=== PATIENT | male | born 1945 | race Caucasian/White ===

== ENCOUNTER 2016-10-14 11:21 | Emergency (ER) | payer OTHER, MEDICARE ==
[~2016-10-14] VITALS: Ht 180.3 cm; Wt 74.8 kg
[2016-10-14] MEDS ORDERED: MORPHINE SULFATE 10 MG/ML VIAL. ONE (11:38)
[2016-10-14] MEDS ORDERED: MORPHINE SULFATE 10 MG/ML VIAL. IV ONE (11:45)
[2016-10-14] MEDS ORDERED: ETOMIDATE 20 MG/10 ML VIAL. IV ONE (12:00)
[2016-10-14] MEDS ORDERED: FENTANYL PF 100 MCG/2 ML VIAL. IV ONE ×3 (12:00→13:07)
--- NOTE | 2016-10-14 12:01 | RAD ---
Indication left hip pain. AP and lateral views of the left hip were obtained as well as an AP view of the pelvis. There is a dislocated total left hip prosthesis. No fracture is seen. IMPRESSION: Dislocated total left hip prosthesis
[2016-10-14] MEDS ORDERED: IV NORMAL SALINE 1000ML BAG 1,000 ML IV ONE (12:30)
[2016-10-14] MEDS ORDERED: MIDAZOLAM HCL/PF 5 MG/5 ML VIAL. ONE (12:35)
[2016-10-14] MEDS ORDERED: PROPOFOL 20 ML IV ONE ×2 (12:41→13:00)
[2016-10-14] MEDS ORDERED: MIDAZOLAM HCL/PF 5 MG/5 ML VIAL. IV ONE (13:00)
--- NOTE | 2016-10-14 13:22 | RAD ---
Indication post reduction. AP and lateral views of the left hip were obtained at 1314 and compared to an examination approximately 90 minutes earlier. There's been interval reduction of previously identified dislocated total hip prosthesis.. No complication is seen. No fracture is identified. IMPRESSION: Interval reduction
--- NOTE | 2016-10-14 13:43 | PHYS DOC ---
Past Medical History Past Medical History: Arthritis, Cancer, Diabetes-Type II, Heart Disease, Hypertension, Other Additional Past Medical Histor: RENAL CA Past Surgical History: Hip Replacement, Pacemaker, Other Additional Past Surgical Histo: L JHIP, L FAILED ROTATOR CUFF, L NEPHRECTOMY Alcohol Use: None Drug Use: None Adult General Chief Complaint Chief Complaint: HIP PAIN HPI HPI Patient is a 71 year old male who presents with left hip deformity. Patient states he was sitting on the floor at home, tried to stand up & felt hip pop out of place. Has been unable to stand or bear weight since time of the incident. Denies injuries. No other complaints. Patient has remote history of left hip arthroplasty at the [facility] performed by a surgeon no longer practicing. Previous dislocation in 12/2015, reduced in the ED by Dr. Diaz. Review of Systems Review of Systems Constitutional: Denies fever or chills Eyes: Denies change in visual acuity HENT: Denies nasal congestion or sore throat Respiratory: Denies cough or shortness of breath Cardiovascular: Denies chest pain or edema GI: Denies abdominal pain, nausea, vomiting, Musculoskeletal: Reports left hip pain Integument: Denies rash or skin lesions Neurologic: Denies headache Current Medications Current Medications Current Medications Medications (Trade) Dose Ordered Sig/Todd Start Time Stop Time Status Last Admin Dose Admin Etomidate (Amidate) 10 mg 1X ONCE 10/14/16 12:00 10/14/16 12:01 DC 10/14/16 12:29 10 MG Fentanyl Citrate (Fentanyl 2ml Vial) 50 mcg 1X ONCE 10/14/16 13:07 10/14/16 13:08 DC Fentanyl Citrate 50 mcg 50 mcg 1X ONCE 10/14/16 12:00 10/14/16 12:01 DC 10/14/16 12:31 50 MCG Midazolam HCl (Versed) 3 mg 1X ONCE 10/14/16 13:00 10/14/16 13:01 DC 10/14/16 12:34 3 MG Midazolam HCl 5 mg 5 mg STK-MED ONCE 10/14/16 12:35 10/14/16 12:36 DC Morphine Sulfate 10 mg STK-MED ONCE 10/14/16 11:38 10/14/16 11:39 DC Propofol (Diprivan) 20 ml @ 0 mls/hr 1X ONCE 10/14/16 13:00 10/14/16 13:01 DC 10/14/16 12:43 0 MLS/HR Sodium Chloride (Iv Sodium Chloride 0.9% 1000ml Bag) 1,000 ml @ 1,000 mls/hr 1X ONCE 10/14/16 12:30 10/14/16 13:29 DC 10/14/16 12:26 1,000 MLS/HR Allergies Allergies Allergies Coded Allergies Type Severity Reaction Last Updated Verified Penicillins Allergy Intermediate 12/19/15 Yes Physical Exam Physical Exam Constitutional: Well developed, well nourished, appears uncomfortable. HENT: Normocephalic, atraumatic, bilateral external ears normal, oropharynx moist, nose normal. Eyes: conjunctiva normal, no discharge. Neck: supple, no stridor. Cardiovascular: RRR, no murmurs, no edema. Lungs & Thorax: LCTAB, no wheezing, no respiratory distress. Abdomen: soft, nontender, nondistended. Skin: Warm, dry, no erythema, no rash. Back: No tenderness. Extremities: Left hip internally rotated with obvious deformity, no knee or ankle tenderness, DP and PT 2+, sensation intact to foot. Neurologic: Alert and oriented X 3, no focal deficits noted. Psychologic: Affect normal, judgement normal, mood normal. Current Patient Data Vital Signs Vital Signs Date Time Temp Pulse Resp B/P Pulse Ox O2 Delivery O2 Flow Rate FiO2 10/14/16 12:36 20 98 Room Air 10/14/16 11:25 98.3 97 237/102 98.3 EKG EKG [] Radiology/Procedures Radiology/Procedures PROCEDURE: HIP LEFT 2V WITH PELVIS Indication left hip pain. AP and lateral views of the left hip were obtained as well as an AP view of the pelvis. There is a dislocated total left hip prosthesis. No fracture is seen. IMPRESSION: Dislocated total left hip prosthesis DICTATED and SIGNED BY: SP BLANCAS MD DATE: 10/14/16 7257 PROCEDURE: HIP LEFT 2 VIEW Indication post reduction. AP and lateral views of the left hip were obtained at 1314 and compared to an examination approximately 90 minutes earlier. There's been interval reduction of previously identified dislocated total hip prosthesis.. No complication is seen. No fracture is identified. IMPRESSION: Interval reduction DICTATED and SIGNED BY: SP BLANCAS MD DATE: 10/14/16 8867 [] Course & Med Decision Making Course & Med Decision Making Pertinent Labs and Imaging studies reviewed. (See chart for details) [] Dragon Disclaimer Dragon Disclaimer This electronic medical record was generated, in whole or in part, using a voice recognition dictation system. Procedural Sedation Proc Sed Indication: reduction of left hip dislocation Consent: I have discussed with the patient and/or the patient sales representative business courses the indication, alternatives, and the possible risks and /or complications of the planned procedure and the anesthesia methods. The patient and/or patient sales representative business courses appear to understand and agree to proceed. Pre-Sedation Documentation and Exam: as documented above Airway Assessment: normal. Prior History of Anesthesia Complications: none. ASA Classification: 3 Sedation/ Anesthesia Plan: procedural sedation in the emergency department Medications Used: see nursing notes. inadequate sedation with etomidate as well as fentanyl/versed, ultimately achieved sedation with propofol. see skiff operator for doses & times. Monitoring and Safety: The patient was placed on a adjunct professor and vital signs, pulse oximetry and level of consciousness were continuously evaluated throughout the procedure. The patient was closely monitored until recovery from the medications was complete and the patient had returned to baseline status. Respiratory therapy was on standby at all times during the procedure. (The following sections must be completed) Post-Sedation Vital Signs: as documented by RN Post-Sedation Exam: as above with the exception of successfully reduced dislocation of left hip, dp/pt remain 2+, sensation intact to foot, normal ROM to hip. Complications: none. Vital Signs Vital Signs Date Time Temp Pulse Resp B/P Pulse Ox O2 Delivery O2 Flow Rate FiO2 10/14/16 12:36 20 98 Room Air 10/14/16 11:25 98.3 97 237/102 98.3 Joint Reduction Procedure Joint Indication: left hip dislocation Consent: Consent was obtained. Procedure: The pre-reduction exam showed distal perfusion and neurologic function to be normal.. The patient was placed in the appropriate position. Anesthesia/pain control was achieved as above using procedural sedation. Reduction of the left hip was performed by traction/countertraction, initially attempted by Dr. Torres & ultimately performed by Dr. Waite. Post reduction films were obtained and revealed satisfactory reduction. A post-reduction exam revealed distal perfusion and neurologic function to be normal. The patient tolerated the procedure well. Complications: none. Departure Departure Impression: Primary Impression: Dislocation of hip joint prosthesis Disposition: 01 HOME, SELF-CARE Condition: IMPROVED Referrals: CARLOS DIAZ MD Patient Instructions: Closed Reduction for Artificial Hip Dislocation, Care After Additional Instructions: You were seen in the emergency department today for hip dislocation. It was successfully reduced while you were sedated. Please avoid sitting on the floor as this has caused multiple dislocations. We recommend using the pillow that you received last time this happened. Follow-up in about a week with Dr. Diaz in the orthopedic clinic. Return to the emergency department for recurrent dislocation, numbness or weakness in your leg, cold foot, any otherwise worsening condition. YOCASTA TORRES MD Oct 14, 2016 13:42
[2016-10-14 14:00] VITALS: BP 165/95
== END 2016-10-14 14:10 | disposition home or self-care (01) ==
LOC: ER 11:21
DX: T84.021A Dislocation of internal left hip prosthesis, initial encounter (principal); I10 Essential (primary) hypertension; E11.9 Type 2 diabetes mellitus without complications; I11.9 Hypertensive heart disease without heart failure; M19.90 Unspecified osteoarthritis, unspecified site; Z88.0 Allergy status to penicillin; Z95.0 Presence of cardiac pacemaker; Z90.5 Acquired absence of kidney; Z96.642 Presence of left artificial hip joint; Y79.2 Prosthetic and other implants, materials and accessory orthopedic devices associated with adverse incidents; Y92.89 Other specified places as the place of occurrence of the external cause
CPT/HCPCS: 27265; 73502; 96361; 96374; 96375; 99285; J2250; J2270; J2704; J3010; J7030

== ENCOUNTER 2017-05-01 15:15 | Emergency (ER) | payer MEDICARE, OTHER ==
[~2017-05-01] VITALS: Ht 180.3 cm; Wt 73.7 kg
[2017-05-01] MEDS ORDERED: HYDROmorphone 2 MG/ML VIAL IV ONE (15:45)
[2017-05-01] MEDS ORDERED: ONDANSETRON PF 4 MG/2 ML VIAL. IV ONE (15:45)
[2017-05-01] MEDS ORDERED: fentaNYL PF VIAL 100 MCG/2 ML VIAL IV ONE (15:45)
[2017-05-01] MEDS ORDERED: PROPOFOL 20 ML IV ONE (15:45)
--- NOTE | 2017-05-01 15:58 | PHYS DOC ---
Past Medical History Past Medical History: Arthritis, Cancer, Diabetes-Type II, High Cholesterol, Heart Disease, Hypertension, Other Additional Past Medical Histor: RENAL CA/ SKIN CA. RA Past Surgical History: Coronary Bypass Surgery, Hip Replacement, Pacemaker, Other Additional Past Surgical Histo: L HIP, L FAILED ROTATOR CUFF, L NEPHRECTOMY, Alcohol Use: None Drug Use: None Adult General Chief Complaint Chief Complaint: HIP PAIN HPI HPI he is a pleasant 71-year-old male with a history of left hip prosthesis now having his third dislocation in his many months. Patient was standing trying to turn and it popped coming out of joint causing his late internally rotate. He was unable to stand and EMS was called to the scene, transported to the ER. He has a relationship with Dr. Diaz exerted here to advise this particular prosthetic. His prosthetic is been here since 2007. His pain is severe 10 of 10 especially with movement. He denies any numbness and tingling to the lower extremity. Denies any bowel or bladder incontinence, numbness and tingling, abdominal pain, nausea vomiting or diarrhea. Patient denied any concomitant injury with the dislocation at the time it occurred. Does have history of hypertension, hyperlipidemia, prior stenting and bypass surgery for a heart attack. Patient has a history of prior renal cell carcinoma requiring nephrectomy, diabetes type 2 and chronic pain issues. His last meal was approximately 10:30 AM he denies any oral instability, neck immobility problems , problems swallowing or problems with anesthetics. Review of Systems Review of Systems Constitutional: Denies fever or chills [] Eyes: Denies change in visual acuity, redness, or eye pain [] HENT: Denies nasal congestion or sore throat [] Respiratory: Denies cough or shortness of breath [] Cardiovascular: No additional information not addressed in HPI [] GI: Denies abdominal pain, nausea, vomiting, bloody stools or diarrhea [] : Denies dysuria or hematuria [] Musculoskeletal: Patient complains of severe left hip pain Integument: Denies rash or skin lesions [] Neurologic: Denies headache, focal weakness or sensory changes [] Endocrine: Denies polyuria or polydipsia [] Current Medications Current Medications Current Medications Medications (Trade) Dose Ordered Sig/Todd Start Time Stop Time Status Last Admin Dose Admin Fentanyl Citrate (Fentanyl 2ml Vial) 50 mcg 1X ONCE 05/01/17 15:45 05/01/17 15:46 DC Hydromorphone HCl (Dilaudid) 2 mg 1X ONCE 05/01/17 15:45 05/01/17 15:46 DC 05/01/17 15:43 2 MG Ondansetron HCl (Zofran) 4 mg 1X ONCE 05/01/17 15:45 05/01/17 15:46 DC 05/01/17 15:42 4 MG Propofol 20 ml @ 0 mls/hr 1X ONCE 05/01/17 15:45 05/01/17 15:46 DC 05/01/17 16:11 0 MLS/HR Allergies Allergies Allergies Coded Allergies Type Severity Reaction Last Updated Verified Penicillins Allergy Intermediate 12/19/15 Yes Physical Exam Physical Exam Constitutional: Well developed, well nourished, patient is very uncomfortable with his hip in a position internal rotation on the left. HENT: Normocephalic, atraumatic, bilateral external ears normal, oropharynx moist, no oral exudates, nose normal. No loose dentition, or pharynx is clear Eyes: PERRLA, EOMI, conjunctiva normal, no discharge. [] Neck: Normal range of motion, no tenderness, supple, no stridor. [] Cardiovascular:Heart rate regular rhythm, no murmur [] Lungs & Thorax: Bilateral breath sounds clear to auscultation [] Abdomen: Bowel sounds normal, soft, no tenderness, Skin: Warm, dry, no erythema, no rash. [] Extremities: Left hip shows internal rotation with shortening. Normal sensation to light touch and good pulses at the dorsalis pedis brisk +2 Neurologic: Alert and oriented X 3, normal motor function, normal sensory function, no focal deficits noted. [] Psychologic: Affect normal, judgement normal, mood normal. [] Current Patient Data Vital Signs Vital Signs Date Time Temp Pulse Resp B/P (MAP) Pulse Ox O2 Delivery O2 Flow Rate FiO2 05/01/17 16:11 98.0 107 20 183/81 98.0 98.0 98.0 05/01/17 15:43 Room Air 05/01/17 15:15 100 EKG EKG [] Radiology/Procedures Radiology/Procedures [] [facility] [address] [place] [address] IMAGING REPORT Signed PATIENT: CHRISTINE WHITE ACCOUNT: [id number] : 1945 LOCATION: ER AGE: 71 SEX: M EXAM STATUS: PRE ER ORD. PHYSICIAN: RICHARD BLACKMAN MD REASON: trauma PROCEDURE: HIP LEFT 2 VIEW Indication: Pain after fall. Technique: 2 views of the left hip are submitted for review. Comparison is from October 14, 2016. Findings: Left hip arthroplasty has been performed. Hardware appears well seated. There is no perihardware lucency. There is dislocation of the femur from the acetabular component. Dislocation is superior and posterior. No fracture is apparent. Impression: Dislocated left hip prosthesis. DICTATED and SIGNED BY: KALI MOSQUERA MD DATE: 05/01/17 161 CC: RICHARD BLACKMAN MD; MALORIE JHA MD ~ [address] [address] IMAGING REPORT Signed PATIENT: CHRISTINE WHITE ACCOUNT: [id number] : 1945 LOCATION: ER AGE: 71 SEX: M EXAM STATUS: PRE ER ORD. PHYSICIAN: RICHARD BLACKMAN MD REASON: reduction PROCEDURE: HIP LEFT 2 VIEW Indication post reduction. AP and lateral views of the left hip were obtained and are compared to a study approximately 30 minutes earlier. There has been interval reduction of previously identified hip dislocation. No fracture or unexpected finding is seen. IMPRESSION: Interval reduction of previously identified dislocation DICTATED and SIGNED BY: SP BLANCAS MD DATE: 05/01/17 163 CC: RICHARD BLACKMAN MD; MALORIE JHA MD ~ Course & Med Decision Making Course & Med Decision Making Pertinent Labs and Imaging studies reviewed. (See chart for details) Patient is a pleasant 71-year-old male with a history of prosthetic left hip that is been dislocated more than one time. Patient was a standing position when he twisted and felt that it popped out of joint. Decreased extreme pain with no neurologic deficits. Patient was able to walk after the injury. He arrived here his stated discomfort with obvious hip dislocation. It is been reduced after internal procedure sedation. The patient is neurovascular intact on secondary evaluation. Time is now 4:40 PM patient is asked to be discharged home. He is tolerating the pain well he's been given precautions and asked to follow-up with his orthopedic surgeon for revision of the prosthetic hip.\ Impression hip dislocation reduction: Hypertension likely secondary to pain chronic hypertension Dragon Disclaimer Dragon Disclaimer This electronic medical record was generated, in whole or in part, using a voice recognition dictation system. Departure Departure Impression: Primary Impression: Dislocation of hip joint prosthesis Disposition: HOME, SELF-CARE Condition: IMPROVED Referrals: MALORIE JHA MD (PCP) Patient Instructions: Closed Reduction for Artificial Hip Dislocation Additional Instructions: My discharge plan Follow up: In addition patient is asked to followup with their primary doctor, within a week for followup examination and to address patient's ongoing medical conditions. Patient is advised that in the Emergency Department primary complaints are addressed and only in light of known signs and symptoms. Patient should return immediately to the emergency department if new signs and symptoms develop or patient's condition worsens in any way. At time of discharge patient was in stable condition and had verbalized understanding of the discharge instructions. Although there is no acute fracture noted on x-ray today this does not mean subtle fractures are not missed on initial presentation. If your symptoms are not improved within 1 week or if symptoms worsen despite oral treatment with pain medications I would advise follow-up with your primary care doctor to have a repeat set of x-rays completed to ensure no subtle fractures were missed. Please understand that sometimes x-rays are missed red and if there is a misreading of your x-rays she will be contacted by the emergency room physician to talk about appropriate treatment. Scripts Oxycodone/Apap 5-325 (PERCOCET 5-325 MG TABLET) 1 Each Tablet 1-2 TAB PO Q4-6HRS, #12 TAB Prov: RICHARD BLACKMAN MD 05/01/17 Procedural Sedation Proc Sed Indication: []Left hip location reduction for prosthetic hip. He's been out 3 hours Consent: I have discussed with the patient and/or the patient truck sales representative the indication, alternatives, and the possible risks and /or complications of the planned procedure and the anesthesia methods. The patient and/or patient truck sales representative appear to understand and agree to proceed. Pre-Sedation Documentation and Exam: See exam patient has a MP score of 3 [] Airway Assessment: normal. Prior History of Anesthesia Complications: none. ASA Classification: 2 [] Sedation/ Anesthesia Plan: I plan to use IV fentanyl 50 g prior to the reduction. I will use 1 mg/kg of IV propofol over 3-5 minutes followed by boluses Q further 5 minutes to keep him sedation[] Medications Used: see nursing notes. Monitoring and Safety: The patient was placed on a groundwater monitoring technician and vital signs, pulse oximetry and level of consciousness were continuously evaluated throughout the procedure. The patient was closely monitored until recovery from the medications was complete and the patient had returned to baseline status. Respiratory therapy was on standby at all times during the procedure. (The following sections must be completed) Post-Sedation Vital Signs: [EDM.VS] as his blood pressure is 135/75 her in the mid 70s. Patient's sats are 98% on room air patient's respiratory rates 12-14 Post-Sedation Exam: Patient post-sedation exam hip was reduced with a palpable clunk. We used traction countertraction to reduce the hip without issue. His hip is no longer internally rotated on follow-up exam. Patient took his airway the entire time satting 97-98% on room air. Blood pressure was 183/89 as his heart rate was in the mid 80s. [] Complications: none. Vital Signs Vital Signs Date Time Temp Pulse Resp B/P (MAP) Pulse Ox O2 Delivery O2 Flow Rate FiO2 05/01/17 16:11 98.0 107 20 183/81 98.0 98.0 98.0 05/01/17 15:43 Room Air 05/01/17 15:15 100 RICHARD BLACKMAN MD May 01, 2017 15:58
--- NOTE | 2017-05-01 16:14 | RAD ---
Indication: Pain after fall. Technique: 2 views of the left hip are submitted for review. Comparison is from October 14, 2016. Findings: Left hip arthroplasty has been performed. Hardware appears well seated. There is no perihardware lucency. There is dislocation of the femur from the acetabular component. Dislocation is superior and posterior. No fracture is apparent. Impression: Dislocated left hip prosthesis.
[2017-05-01] MEDS ORDERED: OXYC-323 PO (16:19)
--- NOTE | 2017-05-01 16:35 | RAD ---
Indication post reduction. AP and lateral views of the left hip were obtained and are compared to a study approximately 30 minutes earlier. There has been interval reduction of previously identified hip dislocation. No fracture or unexpected finding is seen. IMPRESSION: Interval reduction of previously identified dislocation
[2017-05-01 16:45] VITALS: BP 156/77
== END 2017-05-01 16:55 | disposition home or self-care (01) ==
LOC: ER 15:15
DX: T84.021A Dislocation of internal left hip prosthesis, initial encounter (principal); E11.9 Type 2 diabetes mellitus without complications; E78.00 Pure hypercholesterolemia, unspecified; I11.9 Hypertensive heart disease without heart failure; Z95.0 Presence of cardiac pacemaker; Z90.5 Acquired absence of kidney; Z85.528 Personal history of other malignant neoplasm of kidney; I25.2 Old myocardial infarction; G89.29 Other chronic pain; Z88.0 Allergy status to penicillin; Z95.1 Presence of aortocoronary bypass graft; Y79.2 Prosthetic and other implants, materials and accessory orthopedic devices associated with adverse incidents; Y92.89 Other specified places as the place of occurrence of the external cause
CPT/HCPCS: 27265; 73502; 96374; 96375; 99285; J1170; J2405; J2704

== ENCOUNTER → 2017-05-19 | Outpatient (CLI) | payer OTHER ==
[2017-05-01 16:45] VITALS: BP 156/77
[~2017-05-19] MED LIST: ADAL40PE SQ; AMLO5TAB2 PO; CETI10TA16 PO; CLOP75TA PO; CRESTOR40 MG PO; FOLI1TAB16 PO; FOSI40TA PO; GLIP10TA13 PO; METH2.5T PO; METO200T5 PO; OXYC-323 PO; PRED2.5T PO; TAMS0.4C2 PO
--- NOTE | 2017-05-19 14:23 | EKG ---
[facility] [address] [place] [address] Test Date: 2017-05-19 Test Time: 14:28:33 Pat Name: CHRISTINE WHITE Department: Room: Gender: M Digital Sales Representative: NIK : 1945 Requested By: CARLOS FAN Order Number: [id number] Reading MD: Jimbo Lerner MD Measurements Intervals [place] Rate: 66 P: 46 IN: 150 QRS: 63 QRSD: 112 T: -157 QT: 438 QTc: 461 Interpretive Statements SINUS RHYTHM VENTRICULAR PREMATURE COMPLEX(ES) ST & T ABNORMALITY, CONSIDER ANTEROLATERAL ISCHEMIA OR LEFT VENTRICULAR STRAIN INFEROLATERAL ISCHEMIA OR LEFT VENTRICULAR STRAIN T ABNORMALITY IN ANTERIOR LEADS Electronically Signed On 05-20-2017 13:56:33 CDT by Jimbo Lerner MD
--- NOTE | 2017-05-19 15:15 | RAD ---
Indication: Preop for left hip surgery. Time of exam 1501 hours. No prior studies are available for comparison. The heart size is normal. There are changes of median sternotomy. There is a cardiac defibrillator in place. The lungs are hyperinflated consistent with COPD. There are calcified nodules in both lungs consistent with granulomas. No effusion or pneumothorax is seen. Impression: COPD. No acute feature is detected.
[2017-05-19 15:31] LABS: BASO % 1 % (0-3); EOS % 2 % (0-3); HEMATOCRIT 45.1 % (39.0-53.0); HEMOGLOBIN 15.5 g/dL (13.0-17.5); LYMPH # 2.3 x10^3/uL (1.0-4.8); LYMPH % 32 % (24-48); MEAN CORPUSCULAR HEMOGLOBIN 35 pg (25-35); MEAN CORPUSCULAR HGB CONC 34 g/dL (31-37); MEAN CORPUSCULAR VOLUME 102 fL (79-100); MONO % 10 % (0-9); NEUT % 56 % (31-73); PLATELET COUNT 170 x10^3/uL (140-400); RED BLOOD COUNT 4.43 x10^6/uL (4.30-5.70); RED CELL DISTRIBUTION WIDTH 14.5 % (11.5-14.5); WHITE BLOOD COUNT 7.2 x10^3/uL (4.0-11.0)
[2017-05-19 15:42] LABS: ALBUMIN 3.9 g/dL (3.4-5.0); CALCIUM 9.2 mg/dL (8.5-10.1); CREATININE 1.1 mg/dL (0.7-1.3); GFR 65.8; POTASSIUM 4.2 mmol/L (3.5-5.1)
[2017-05-19 15:48] LABS: PROTHROMBIN TIME PATIENT 12.6 SEC (11.7-14.0)
[2017-05-19 15:54] LABS: BILIRUBIN,URINE NEGATIVE (NEG); GLUCOSE,URINE NEGATIVE (NEG); NITRITE,URINE NEGATIVE (NEG); PROTEIN,URINE NEGATIVE (NEG-TRACE); UROBILINOGEN,URINE 0.2 mg/dL (0.2 mg/dL)
[2017-05-19 15:59] LABS: BACTERIA,URINE 0 /HPF (0-FEW); RBC,URINE 0 /HPF (0-2); WBC,URINE 0 /HPF (0-4)
== END | disposition home or self-care (01) ==
LOC: SURGPAT 13:03
PROVIDERS: ATTEND Orthopaedic Surgery
DX: Z01.818 Encounter for other preprocedural examination (principal); T84.02 Dislocation of internal joint prosthesis; J44.9 Chronic obstructive pulmonary disease, unspecified; Z96.642 Presence of left artificial hip joint; X58.XXXD Exposure to other specified factors, subsequent encounter
CPT/HCPCS: 36415; 71020; 80048; 81001; 82040; 83036; 85025; 85610; 85651; 85730; 87641; 93005

== ENCOUNTER 2017-06-13 06:04 | Inpatient (IN) | payer OTHER ==
[~2017-06-13] VITALS: Ht 177.8 cm; Wt 78.5 kg
[2017-06-13] VITALS (8 sets, daily range): BP systolic 131–152; BP diastolic 57–81
[~2017-06-13 06:04] MED LIST changes: +CELECOXIB 200 MG CAPSULE. PO PRN; +GABA-585 PO; +HYDROcodone/APAP 7.5/325MG 1 TAB TABLET PO PRN; +TRANEXAMIC ACID 1,000 MG in IV NS 50ML -- 1ST BAG INJ ONE
[2017-06-13 06:58] LABS: PROTHROMBIN TIME PATIENT 12.9 SEC (11.7-14.0)
[2017-06-13] MEDS ORDERED: IV RINGERS,LACTATED 1000ML 1,000 ML IV SCH (07:00)
[2017-06-13] MEDS ORDERED: HYDROmorphone 2 MG/ML VIAL IV PRN (07:00)
[2017-06-13] MEDS ORDERED: LIDOCAINE 1% PF 2 ML VIAL. ID PRN (07:00)
[2017-06-13] MEDS ORDERED: ONDANSETRON PF 4 MG/2 ML VIAL. IV PRN (07:00)
[2017-06-13] MEDS ORDERED: PROCHLORPERAZINE 10 MG/2 ML VIAL. IV PRN ×2 (07:00→11:00)
[2017-06-13] MEDS ORDERED: fentaNYL PF VIAL 100 MCG/2 ML VIAL IV PRN ×3 (07:00→11:00)
[2017-06-13] MEDS ORDERED: PROPOFOL 20 ML IV ONE (07:19)
[2017-06-13] MEDS ORDERED: ONDANSETRON PF 4 MG/2 ML VIAL. ONE (07:19)
[2017-06-13] MEDS ORDERED: ROCURONIUM 50 MG/5 ML VIAL. ONE (07:19)
[2017-06-13] MEDS ORDERED: DEXAMETHASONE SOD PHOS 20 MG/5 ML VIAL. ONE (07:19)
[2017-06-13] MEDS ORDERED: LIDOCAINE 2% PF Vial for OR 5 ML VIAL. ONE (07:19)
[2017-06-13] MEDS ORDERED: fentaNYL PF VIAL 100 MCG/2 ML VIAL ONE ×4 (07:20→11:58)
[2017-06-13] MEDS: MORPHINE SULFATE 5 MG, KETOROLAC 30 MG, ROPIVacaine 0.5% PF 60 ML, EPINEPHrine 0.5 MG i... INT ART ONE ×10 (07:30→08:36)
[2017-06-13] MEDS ORDERED: CLINDAMYCIN 900MG PREMIX 50 ML IV PRN (08:00)
[2017-06-13] MEDS ORDERED: TRANEXAMIC ACID 1,000 MG in IV NS 50ML -- 2ND BAG INJ ONE (08:00)
[2017-06-13] MEDS ORDERED: PHENYLEPHRINE in 0.9% NACL PF 1 MG/10 ML DISP.SYRIN. IV ONE (08:47)
[2017-06-13] MEDS ORDERED: SEVOFLURANE > 120 MINUTES. IH ONE (09:02)
[2017-06-13] MEDS ORDERED: PHENYLEPHRINE 10 MG/ML VIAL. ONE (09:03)
[2017-06-13] MEDS ORDERED: VASOPRESSIN 20 UNIT/ML VIAL. ONE (09:12)
[2017-06-13] MEDS ORDERED: 0.9 % SODIUM CHLORIDE 50 ML VIAL. IJ ONE (09:50)
[2017-06-13] MEDS: fentaNYL PF VIAL 100 MCG/2 ML VIAL IV PRN ×4 (10:40→12:18)
[2017-06-13] MEDS ORDERED: INSULIN ASPART 100 UNIT/ML 10ML VIAL. SQ ONE (10:57)
[2017-06-13] MEDS ORDERED: CALCIUM CARBONATE 500 MG TAB.CHEW PO PRN (11:00)
[2017-06-13] MEDS ORDERED: MORPHINE SULFATE 2 MG/ML DISP.SYRIN. IV PRN (11:00)
[2017-06-13] MEDS ORDERED: 0.9 % SODIUM CHLORIDE 10 ML DISP.SYRIN. IV PRN (11:00)
[2017-06-13] MEDS ORDERED: METOCLOPRAMIDE HCL 10 MG/2 ML VIAL. IV PRN (11:00)
[2017-06-13] MEDS ORDERED: DEXTROSE 50% 25 GM / 50ML DISP.SYRIN. IV PRN (11:00)
[2017-06-13] MEDS ORDERED: MORPHINE SULFATE 10 MG/ML VIAL. IV PRN (11:00)
[2017-06-13] MEDS ORDERED: oxyCODONE/APAP 7.5/325 1 TAB TABLET PO PRN (11:00)
[2017-06-13] MEDS ORDERED: ACETAMINOPHEN 325 MG TABLET. PO PRN (11:00)
[2017-06-13] MEDS ORDERED: PROCHLORPERAZINE 5 MG TABLET. PO PRN (11:00)
[2017-06-13] MEDS ORDERED: ZOLPIDEM 5 MG TABLET. PO PRN (11:00)
[2017-06-13] MEDS ORDERED: traMADol 50 MG TABLET PO PRN ×2 (11:00)
[2017-06-13] MEDS ORDERED: HYDROcodone/APAP 10/325 1 TAB TABLET PO PRN (11:00)
[2017-06-13] MEDS ORDERED: MORPHINE SULFATE 4 MG/ML DISP.SYRIN. IV PRN ×2 (11:00)
[2017-06-13] MEDS ORDERED: oxyCODONE/APAP 5/325 1 TAB TABLET PO PRN (11:00)
[2017-06-13] MEDS ORDERED: diphenhydrAMINE 50 MG/ML VIAL IV PRN (11:00)
[2017-06-13] MEDS ORDERED: MORPHINE SULFATE 2 MG/ML DISP.SYRIN. ONE (11:11)
[2017-06-13] MEDS: MORPHINE SULFATE 2 MG/ML DISP.SYRIN. IV PRN ×2 (11:14→11:41)
[2017-06-13] MEDS ORDERED: INSULIN ASPART 100 UNIT/ML 10ML VIAL. SQ PRN (12:30)
[2017-06-13] MEDS: NICOTINE 21MG PATCH. TD SCH (13:41)
[2017-06-13] MEDS: CLINDAMYCIN 900MG PREMIX 50 ML IV SCH ×2 (13:43→19:56)
[2017-06-13] MEDS ORDERED: WARFARIN 7.5 MG TABLET. PO ONE (16:00)
[2017-06-13] MEDS: FERROUS SULFATE 325 MG TABLET. PO SCH (17:07)
[2017-06-13] MEDS: IV DEXTROSE 5 %-0.45 % NACL 1,000 ML IV SCH (19:57)
[2017-06-13] MEDS: CELECOXIB 200 MG CAPSULE. PO SCH (20:42)
[2017-06-13] MEDS ORDERED: ATORVASTATIN CALCIUM 40 MG TABLET. PO SCH (21:00)
--- NOTE | 2017-06-13 21:43 | PDOC4 ---
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 Arevalo and has had multiple dislocation episodes in the interim. He is very active yet tries to maintain his total hip precautions and really does not recall getting in a compromising position in terms of his is instructed total hip precautions. He is very concerned at this point that his hip is just going to go out on him and it's very much inhibiting his activities of daily living and desired active lifestyle. We talked about the possibility since the stem and cup appeared to be well fixed and reasonably positioned of a conversion to a constrained total hip arthroplasty and the fact that in most circumstances aside from a large force is in a fall accident etc. would keep the hip in place but certainly a possibility of a larger force as in the situations above would result in a dislocation which would by definition result in open operative treatment. All his questions were answered regarding the process and he wishes to proceed with operative evaluation and treatment Operative text: Patient was identified procedure verified patient placed in the supine position on the operative table. After adequate amounts of general endotracheal anesthesia were administered he was placed decubitus position left side up all bony prominences were well-padded and the left hip was prepped and draped in standard sterile fashion. After timeout was performed patient procedure identified and verified his previous incision was followed and slightly extended for posterior approach to the left hip dissection carried out through the iliotibial band and gluteal fascia which were split in line with their fibers Charnley retractor was placed posterior hip capsule and external rotators were noted to be completely retracted he had evidence of previous dislocation on the elevated liner polyethylene which was placed posterior superiorly he appeared to be dislocating more inferiorly to the elevated liner potentially and the liner appeared to be well fixed in the well fixed acetabular component likewise after removal scar tissue the femoral stem was noted to be well fixed as expected based on x-ray appearance. No evidence of infection was noted. Acetabular shell appeared to be well fixed and reasonably positioned. Therefore given the deficient posterior capsule and external rotators and component positioning I verified my initial plan of a constrained acetabular liner the locking ring was released and the original liner was removed from the well fixated Trilogy acetabular shell and I meticulously removed any soft tissue from around the acetabular liner that would prevent seeding of the constrained liner. After trial fitting a 32 mm inner diameter constrained liner for use with the 56 mm outer diameter shell was used with a 32 mm diameter -3.5 neck length femoral head after trial fitting. The constraining ring was first placed in the femoral head assembled in the constrained liner and was reduced and verified constrained with the locking ring into the acetabular shell and the constraining ring was then tapped down into place reinforcing the polyethylene ears that were placed at 1:00 and 7:00 completing the fixation. Excellent range of motion and constraint were verified thorough irrigation carried out normal saline solution fascia was closed with Ethibond suture and reinforced with #1 PDS strata fix barbed suture subcutaneous closure following injection of the pain catheter mixture intracapsularly and around the surrounding joint capsule. Skin closure with konrad a tamiko dressing with Acticoat was placed patient was returned to recovery room in stable condition having tolerated procedure well CARLOS FAN MD Jun 13, 2017 21:43
[2017-06-13] MEDS: HYDROcodone/APAP 7.5/325MG 1 TAB TABLET PO PRN (22:40)
[2017-06-14] MEDS: IV DEXTROSE 5 %-0.45 % NACL 1,000 ML IV SCH
[2017-06-14] MEDS: CLINDAMYCIN 900MG PREMIX 50 ML IV SCH (01:39)
[2017-06-14 02:49] VITALS: BP 132/73
[2017-06-14] MEDS: HYDROcodone/APAP 7.5/325MG 1 TAB TABLET PO PRN ×2 (05:16→09:21)
[2017-06-14] MEDS ORDERED: MAGNESIUM HYDROXIDE 2,400 MG/30 ML ORAL.SUSP. PO PRN (06:00)
[2017-06-14 06:15] VITALS: BP 144/61
[2017-06-14 06:41] LABS: HEMATOCRIT 43.3 % (39.0-53.0); HEMOGLOBIN 14.4 g/dL (13.0-17.5)
[2017-06-14 06:49] LABS: INR 1.2 (0.8-1.1); PROTHROMBIN TIME PATIENT 14.4 SEC (11.7-14.0)
[2017-06-14] MEDS ORDERED: glipiZIDE 5 MG TABLET PO SCH (07:30)
[2017-06-14] MEDS: CELECOXIB 200 MG CAPSULE. PO SCH (08:15)
[2017-06-14] MEDS: FERROUS SULFATE 325 MG TABLET. PO SCH (08:15)
[2017-06-14] MEDS: NICOTINE 21MG PATCH. TD SCH (08:17)
[2017-06-14] MEDS ORDERED: CETIRIZINE HCL 10 MG TABLET. PO SCH (09:00)
[2017-06-14] MEDS ORDERED: SENNOSIDES/DOCUSATE 8.6/50MG TABLET. PO SCH (09:00)
[2017-06-14] MEDS ORDERED: MULTIVITAMIN with MINERAL TABLET. PO SCH (09:00)
[2017-06-14] MEDS ORDERED: GABAPENTIN 100 MG CAPSULE. PO SCH (09:00)
[2017-06-14] MEDS ORDERED: FOLIC ACID 1 MG TABLET. PO SCH (09:00)
[2017-06-14] MEDS ORDERED: amLODIPine BESYLATE 5 MG TABLET PO SCH (09:00)
[2017-06-14] MEDS ORDERED: METOPROLOL SUCC 24HR ER 100 MG TAB.ER.24H. PO SCH (09:00)
[2017-06-14] MEDS ORDERED: predniSONE 5 MG TABLET PO PRN (09:00)
[2017-06-14] MEDS ORDERED: TAMSULOSIN 0.4 MG CAP.ER.24H. PO SCH (09:00)
[2017-06-14] MEDS ORDERED: APIXABAN 2.5 MG TABLET. PO SCH (14:45)
[2017-06-14 15:07] VITALS: BP 123/72
[2017-06-14] MEDS ORDERED: WARFARIN 5 MG TABLET. PO ONE (16:00)
[2017-06-14] MEDS ORDERED: BISACODYL 10 MG SUPP.RECT. PR PRN (16:00)
--- NOTE | 2017-06-14 21:52 | DS ---
DATE OF DISCHARGE: 06/14/2017 PRINCIPAL DIAGNOSIS: Instability of left total hip arthroplasty. PROCEDURE: Includes revision to constrained left total hip arthroplasty. DISPOSITION MEDICATIONS: Include resumption of his home medications including hydrocodone, which he has at home as well as Eliquis anticoagulation x 1 month per pharmacy dosing ACTIVITY: Activity level is weightbearing as tolerated, no hip precautions needed due to constrained total hip. FOLLOWUP: Follow up with Dr. Diaz in 2 weeks. BRIEF DESCRIPTION OF HOSPITAL COURSE: The patient underwent an uncomplicated revision to a constrained total hip arthroplasty due to multiple previous dislocations with his unstable total hip prosthesis done elsewhere. He tolerated the procedure very well. Even the night after really had minimal pain and was getting up and around well almost independently. He progressed well with physical therapy. Today pain was well controlled and he was discharged home in stable condition with plans for outpatient physical therapy on discharge. CARLOS DIAZ MD DR: BETZY/jose JOB#: [id number] / [id number]
[2017-06-17] MEDS ORDERED: METHOTREXATE SODIUM 2.5 MG TABLET PO SCH (09:00)
--- NOTE | 2017-06-17 09:31 | PREOP HP ---
DATE OF SERVICE: 06/13/2017 This was previously dictated, but apparently lost. CHIEF COMPLAINT: Left hip pain and instability. HISTORY OF PRESENT ILLNESS: The patient had a left total hip arthroplasty done by Dr. Beckham elsewhere and has had multiple instability episodes in the interim. The most recent was when he was working on his deck and like the previous 2 episodes, really did not identify moving the leg in any improper way. He continues to be scared at this point as far as the leg coming out and affecting his otherwise very active lifestyle. He underwent recent clearance for carotid artery stenosis and has gotten medical clearance from the [facility]. PAST MEDICAL HISTORY: Significant for carotid artery stenosis, rheumatoid arthritis and hypertension. PAST SURGICAL HISTORY: Significant for open heart surgery. 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 FAMILY HISTORY: Diabetes, hypertension and cancer. SOCIAL HISTORY: He is a smoker, cutting down. Denies alcohol or drug use. MEDICATIONS: List is reviewed. ALLERGIES: INCLUDE PENICILLIN, OMEPRAZOLE, LANSOPRAZOLE, NIASPAN, ZOCOR AND TERAZOSIN. REVIEW OF SYSTEMS: He denies any fever, chills, chest pain, shortness of breath, focal weakness, numbness, tingling. Really significant only for the hip and radiating leg pain. PHYSICAL EXAMINATION: GENERAL: A pleasant, cooperative male, alert and oriented, no acute distress. VITAL SIGNS: Height 70. Weight 168. Vital signs are stable. HEENT: Atraumatic, normocephalic. HEART: Regular rate and rhythm. LUNGS: Clear to auscultation bilaterally. ABDOMEN: Benign. EXTREMITIES: Examination of the left hip reveals relatively equal leg lengths. Abduction strength is reasonable. Gait with only slight antalgia, well-healed incision from previous total hip arthroplasty. Normal examination of the right hip, normal alignment, stability of bilateral knees and ankles. IMAGING: X-rays reveal apparently well positioned and stable femoral stem and acetabular shell. IMPRESSION: History of multiple left hip prosthesis instability. TREATMENT PLAN: I went over with him the treatment options. Given his otherwise reasonable positioning of the prosthesis and his multiple dislocation episodes that are somewhat unexplained, I covered the possibility with him of revision to a constrained hip arthroplasty in clinic previously. We went through risks, benefits, postoperative course of that procedure, the possibility that the hip could come out given sufficient force, for example in a fall or other trauma and would require open reduction due to the constrained nature, although this should hold the hip in for normal typical movement issues. All his questions were answered regarding the procedure, he wishes to proceed with operative evaluation and treatment, which will occur today and joint center admission to follow. CARLOS FAN MD DR: BETZY/jose JOB#: [id number] / [id number]
== END 2017-06-14 16:05 | disposition home or self-care (01) | DRG 468 ==
LOC: OPSVCIP 06:04 → 4 SOUTHEST 12:30
PROVIDERS: ADMIT Orthopaedic Surgery; ATTEND Orthopaedic Surgery
PROC: 0SPE0JZ Removal of Synthetic Substitute from Left Hip Joint, Acetabular Surface, Open Approach (ICD-10-PCS; 2017-06-13)
PROC: 0SRE0JZ Replacement of Left Hip Joint, Acetabular Surface with Synthetic Substitute, Open Approach (ICD-10-PCS; principal; 2017-06-13 07:30)
DX: T84.021A Dislocation of internal left hip prosthesis, initial encounter (principal); M06.9 Rheumatoid arthritis, unspecified; I65.29 Occlusion and stenosis of unspecified carotid artery; Z96.642 Presence of left artificial hip joint; Y83.8 Other surgical procedures as the cause of abnormal reaction of the patient, or of later complication, without mention of misadventure at the time of the procedure; I10 Essential (primary) hypertension; F17.200 Nicotine dependence, unspecified, uncomplicated; Z83.3 Family history of diabetes mellitus; Z85.828 Personal history of other malignant neoplasm of skin; Z82.49 Family history of ischemic heart disease and other diseases of the circulatory system
CPT/HCPCS: 36415; 82962; 85014; 85018; 85610; 86850; 86900; 86901; 99406; C1713; J0171; J1100; J1815; J1885; J2270; J2370; J2405; J2704; J2795; J3010; J3490; J7030; J7120; 97116; 97150; 97530; J2001

== ENCOUNTER → 2017-09-04 | Outpatient (CLI) | payer OTHER ==
[~2017-09-04] MED LIST changes: -ADAL40PE SQ; -AMLO5TAB2 PO; -CELECOXIB 200 MG CAPSULE. PO PRN; -CETI10TA16 PO; -CLOP75TA PO; -CRESTOR40 MG PO; -FOLI1TAB16 PO; -FOSI40TA PO; -GABA-585 PO; -GLIP10TA13 PO; -HYDROcodone/APAP 7.5/325MG 1 TAB TABLET PO PRN; +IOHEXOL 180 MG/ML 10 ML VIAL.; -METH2.5T PO; -METO200T5 PO; -OXYC-323 PO; -PRED2.5T PO; -TAMS0.4C2 PO; -TRANEXAMIC ACID 1,000 MG in IV NS 50ML -- 1ST BAG INJ ONE; +methylPREDNISolone ACETATE 40 MG/ML VIAL.; +methylPREDNISolone ACETATE 80 MG/ML VIAL.
== END | disposition home or self-care (01) ==
LOC: PNCL 10:55
DX: M51.16 Intervertebral disc disorders with radiculopathy, lumbar region (principal); M48.061 Spinal stenosis, lumbar region without neurogenic claudication; E11.9 Type 2 diabetes mellitus without complications; C44.90 Unspecified malignant neoplasm of skin, unspecified; C64.9 Malignant neoplasm of unspecified kidney, except renal pelvis; Z90.5 Acquired absence of kidney; K21.9 Gastro-esophageal reflux disease without esophagitis; I25.10 Atherosclerotic heart disease of native coronary artery without angina pectoris; M19.90 Unspecified osteoarthritis, unspecified site; Z95.1 Presence of aortocoronary bypass graft; Z95.0 Presence of cardiac pacemaker; Z88.0 Allergy status to penicillin; Z88.4 Allergy status to anesthetic agent; F17.210 Nicotine dependence, cigarettes, uncomplicated; I10 Essential (primary) hypertension; E78.00 Pure hypercholesterolemia, unspecified; F41.9 Anxiety disorder, unspecified
CPT/HCPCS: 62323; J1030; J1040; Q9965

== ENCOUNTER → 2017-09-19 | Outpatient (CLI) | payer OTHER | END | disposition home or self-care (01) | LOC: CT 09:30 | DX: M51.16 Intervertebral disc disorders with radiculopathy, lumbar region (principal); I71.4 Abdominal aortic aneurysm, without rupture; Z88.6 Allergy status to analgesic agent; Z90.5 Acquired absence of kidney; Z88.0 Allergy status to penicillin; F41.9 Anxiety disorder, unspecified; I25.10 Atherosclerotic heart disease of native coronary artery without angina pectoris; I10 Essential (primary) hypertension; K21.9 Gastro-esophageal reflux disease without esophagitis; M54.5 Low back pain; F17.210 Nicotine dependence, cigarettes, uncomplicated; Z95.1 Presence of aortocoronary bypass graft; Z95.0 Presence of cardiac pacemaker; E78.00 Pure hypercholesterolemia, unspecified; E11.9 Type 2 diabetes mellitus without complications; M19.90 Unspecified osteoarthritis, unspecified site; Z85.828 Personal history of other malignant neoplasm of skin; Z85.528 Personal history of other malignant neoplasm of kidney | CPT/HCPCS: 72131 ==

== ENCOUNTER → 2017-09-26 | Outpatient (CLI) | payer OTHER | END | disposition home or self-care (01) | LOC: PNCL 08:25 | DX: M51.16 Intervertebral disc disorders with radiculopathy, lumbar region (principal); M48.061 Spinal stenosis, lumbar region without neurogenic claudication | CPT/HCPCS: 62323; J1030; J1040; Q9965 ==

== ENCOUNTER → 2017-10-05 | Outpatient (CLI) | payer OTHER | END | disposition home or self-care (01) | LOC: PNCL 07:54 | DX: M51.16 Intervertebral disc disorders with radiculopathy, lumbar region (principal); M48.061 Spinal stenosis, lumbar region without neurogenic claudication; G89.29 Other chronic pain; I10 Essential (primary) hypertension; E11.9 Type 2 diabetes mellitus without complications; E78.00 Pure hypercholesterolemia, unspecified; I25.2 Old myocardial infarction; M06.9 Rheumatoid arthritis, unspecified; K21.9 Gastro-esophageal reflux disease without esophagitis; M19.90 Unspecified osteoarthritis, unspecified site; F17.210 Nicotine dependence, cigarettes, uncomplicated; Z85.828 Personal history of other malignant neoplasm of skin; Z98.890 Other specified postprocedural states; Z79.899 Other long term (current) drug therapy; Z85.528 Personal history of other malignant neoplasm of kidney; Z79.01 Long term (current) use of anticoagulants; Z87.19 Personal history of other diseases of the digestive system | CPT/HCPCS: 62323; J1030; J1040; Q9965 ==

== ENCOUNTER 2018-08-24 07:05 | Day surgery (SDC) | payer OTHER ==
[~2018-08-24] VITALS: Ht 177.8 cm; Wt 76.2 kg
[~2018-08-24 07:05] MED LIST changes: +ADAL40PE SQ; +AMLO2.5T5 PO; +AMLO5TAB10 PO; +ASPI-482 PO; +CETI10TA16 PO; +CHOL100013 PO; +CLINDAMYCIN 900MG PREMIX 50 ML IV PRN; +CLOP75TA PO; +CRESTOR40 MG PO; +DICY10CA3 PO; +FOLI1TAB16 PO; +FOSI40TA4 PO; +GABA-585 PO; +GABA300C18 PO; +GLIP10TA13 PO; +HYDR410O TP; +HYDROmorphone 2 MG/ML VIAL IV PRN; -IOHEXOL 180 MG/ML 10 ML VIAL.; +IV RINGERS,LACTATED 1000ML 1,000 ML IV SCH; +LIDOCAINE 1% PF 2 ML VIAL. ID PRN; +MELO7.5T29 PO; +METH2.5T PO; +METO-247 PO; +METO200T46 PO; +MORPHINE SULFATE 4 MG/ML VIAL. IV PRN; +ONDANSETRON PF 4 MG/2 ML VIAL. IV PRN; +OXYC1TAB15 PO; +PRED2.5T PO; +PROCHLORPERAZINE 10 MG/2 ML VIAL. IV PRN; +RABE20TA18 PO; +TAMS0.4C2 PO; +TRAM50TA PO; +fentaNYL PF VIAL 100 MCG/2 ML VIAL IV PRN; +lidocaine patch; -methylPREDNISolone ACETATE 40 MG/ML VIAL.; -methylPREDNISolone ACETATE 80 MG/ML VIAL.
--- NOTE | 2018-08-24 07:34 | EKG ---
[facility] [address] [place] [address] Test Date: 2018-08-24 Test Time: 07:31:55 Pat Name: CHRISTINE WHITE Department: Room: Gender: M Regional Project Manager: NIK Wolff : 1945 Requested By: CARLOS FAN Order Number: [id number] Reading MD: Jimbo Lerner MD Measurements Intervals [place] Rate: 66 P: 41 ND: 160 QRS: 44 QRSD: 112 T: -35 QT: 408 QTc: 429 Interpretive Statements SINUS RHYTHM IVCD NON-SPECIFIC ST/T CHANGES Electronically Signed On 08-30-2018 9:21:08 CALL CENTER COORDINATOR by Jimbo Lerner MD
[2018-08-24] MEDS ORDERED: LIDOCAINE 1% 20 ML VIAL. ONE (07:53)
[2018-08-24] MEDS ORDERED: LIDOCAINE 2% PF 5 ML VIAL. ONE (08:20)
[2018-08-24] MEDS ORDERED: DEXAMETHASONE SOD PHOS 20 MG/5 ML VIAL. ONE (08:20)
[2018-08-24] MEDS ORDERED: fentaNYL PF VIAL 100 MCG/2 ML VIAL ONE (08:20)
[2018-08-24] MEDS ORDERED: ONDANSETRON PF 4 MG/2 ML VIAL. ONE (08:20)
[2018-08-24] MEDS ORDERED: PROPOFOL 20 ML IV ONE (08:20)
[2018-08-24] MEDS ORDERED: PHENYLEPHRINE 10 MG/ML VIAL. ONE (08:27)
[2018-08-24] MEDS ORDERED: 0.9 % SODIUM CHLORIDE 20 ML VIAL. IJ ONE (08:27)
[2018-08-24 09:06] LABS: CALCIUM 9.4 mg/dL (8.5-10.1); CREATININE 1.2 mg/dL (0.7-1.3); GFR 59.3; POTASSIUM 4.2 mmol/L (3.5-5.1)
[2018-08-24 09:16] LABS: BASO % 0 % (0-3); EOS # 0.2 x10^3/uL (0.0-0.7); EOS % 3 % (0-3); HEMATOCRIT 43.4 % (39.0-53.0); HEMOGLOBIN 14.6 g/dL (13.0-17.5); LYMPH # 1.9 x10^3/uL (1.0-4.8); LYMPH % 30 % (24-48); MEAN CORPUSCULAR HEMOGLOBIN 32 pg (25-35); MEAN CORPUSCULAR HGB CONC 34 g/dL (31-37); MEAN CORPUSCULAR VOLUME 95 fL (79-100); MONO # 0.9 x10^3/uL (0.0-1.1); MONO % 14 % (0-9); NEUT # 3.4 x10^3uL (1.8-7.7); NEUT % 53 % (31-73); PLATELET COUNT 184 x10^3/uL (140-400); RED BLOOD COUNT 4.57 x10^6/uL (4.30-5.70); RED CELL DISTRIBUTION WIDTH 17.1 % (11.5-14.5); WHITE BLOOD COUNT 6.5 x10^3/uL (4.0-11.0)
[2018-08-24] MEDS ORDERED: LIDOCAINE 1% Multi-Dose 20 ML VIAL. INJ ONE (10:44)
--- NOTE | 2018-08-24 10:57 | DISCH ---
DISCHARGE INSTRUCTIONS Condition on Discharge Condition on Discharge: Stable Activity After Discharge Activity Instructions for Disc: Activity as tolerated, Other, see below (avoid hard grasp with operative hand) Exercise Instruction after Dis: Progress as tolerated Driving Instructions after Dis: Do not drive today Weight Bearing Status after Di: As tolerated Diet after Discharge Diet after Discharge: Cardiac, Diabetic No Calorie Level, Low Sodium 2 gm Wound Incision Care Wound/Incision Care: Change dressing (May remove dressing in 3 days may then shower no soaking until sutures removed), May get incision wet, Reinforce dressing PRN Contacting the DR. after DC Call your doctor for: Concerns you may have Follow-Up Follow up with: Joe 10 days Treatment/Equipment after DC Adaptive Equipment Issued: None CARLOS FAN MD Aug 24, 2018 10:57
[2018-08-24] MEDS ORDERED: HYDR-3164 PO (10:59)
[2018-08-24 12:15] VITALS: BP 135/112
[2018-08-24] MEDS ORDERED: SEVOFLURANE 16 TO 30 MINUTES. IH ONE (13:19)
--- NOTE | 2018-08-24 20:47 | PDOC4 ---
Operative Note Operative Note Date of surgery 08/24/2018 Preoperative diagnosis: Right ring trigger finger Postoperative diagnosis: Same Operative procedure: Right ring trigger finger release Surgeon: Joe Anesthesia: Gen. Estimated blood loss: 1 mL Complications: None Operative indications: Please see my clinic notes for detailed operative indications patient has had painful trigger finger for several months unresponsive to nonoperative treatment I risks benefits postoperative course of trigger finger release. After informed consent was obtained he agreed to proceed with surgical evaluation and treatment Operative text: Patient was identified procedure verified patient placed in supine position on the operating table. After adequate amounts of general anesthesia were administered the right upper extremity was prepped and draped in standard sterile fashion and after timeout was performed patient procedure identified and verified the right upper extremity was exsanguinated by Esmarch bandage tourniquet inflated to 250 mmHg an incision was made at the distal palmar crease and the flexor tendon sheath was incised A1 leanna was released fully and triggering of the right ring finger was completely eliminated. Flexor profundus and superficialis were noted to be intact. Incision was closed with nylon suture in a vertical mattress fashion sterile dressings were applied patient was returned to recovery room in stable condition having tolerated procedure well CARLOS FAN MD Aug 24, 2018 20:47
--- NOTE | 2018-10-09 10:09 | OP ---
DATE OF SURGERY: 08/24/2018 ADDENDUM PREOPERATIVE DIAGNOSIS: Left ring trigger finger. Operative procedure likewise left instead of right ring trigger finger and throughout the operative text wherever the right appears left should be substituted. Note that the correct surgery was performed; however, on dictating the results were mixed up with a similar procedure performed on another patient that day resulting in the error. CARLOS FAN MD DR: BETZY/jose JOB#: [id number] / [id number]
== END 2018-08-24 12:51 | disposition home or self-care (01) ==
LOC: SURG 07:05
PROVIDERS: ATTEND Orthopaedic Surgery
DX: M65.341 Trigger finger, right ring finger (principal); I10 Essential (primary) hypertension; F17.200 Nicotine dependence, unspecified, uncomplicated; M06.9 Rheumatoid arthritis, unspecified; Z96.642 Presence of left artificial hip joint; Z87.442 Personal history of urinary calculi; Z98.890 Other specified postprocedural states; Z82.49 Family history of ischemic heart disease and other diseases of the circulatory system; Z83.3 Family history of diabetes mellitus; Z79.84 Long term (current) use of oral hypoglycemic drugs; Z88.0 Allergy status to penicillin; Z88.8 Allergy status to other drugs, medicaments and biological substances; Z79.82 Long term (current) use of aspirin; Z79.899 Other long term (current) drug therapy
CPT/HCPCS: 26055; 36415; 80048; 82962; 85025; 93005; A7015; J1100; J2001; J2405; J2704; J3010; J3490